=== PATIENT | female | born 1965 | race Caucasian/White ===

== ENCOUNTER 2018-05-13 14:40 | Emergency (ER) | payer OTHER ==
[2018-05-13] MEDS ORDERED: KETOROLAC 30 MG/ML INJ ONE (15:35)
--- NOTE | 2018-05-13 16:35 | RAD REPORT ---
EXAM DESCRIPTION: RAD - Knee Left 3 View - 05/13/2018 4:29 pm CLINICAL HISTORY: Left knee pain FINDINGS: No fracture or dislocation is seen.
--- NOTE | 2018-05-13 16:36 | EDPHYS ---
Physician Documentation [facility] Name: Zainab Kinney Age: 53 yrs Sex: Female : 1965 Arrival Date: 05/13/2018 Time: 14:43 Bed 13 Private MD: None, None ED Physician Mckay Soto HPI: 05/13 15:36 This 53 yrs old Female presents to ER via Ambulatory with complaints of Knee kb Injury. 15:37 The patient presents with pain, that is acute. The complaints affect the posterior kb aspect of left knee. Context: resulted from an unknown cause, the patient can fully bear weight, the patient is able to ambulate, Problem is a result from a previous injury: No. Pt states she got a muscle cramp and then felt a pop behind left knee 5 days ago. Onset: The symptoms/episode began/occurred 5 day(s) ago. Modifying factors: The symptoms are alleviated by nothing. the symptoms are aggravated by movement, weight bearing. Associated signs and symptoms: The patient has no apparent associated signs or symptoms. Treatment prior to arrival includes: no previous treatment. Severity of symptoms: At their worst the symptoms were moderate, in the emergency department the symptoms are unchanged. The patient has not experienced similar symptoms in the past. The patient has not recently seen a physician. 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 - Social history:: Smoking status: Patient/guardian denies using tobacco. - Ebola Screening: : Patient negative for fever greater than or equal to 101.5 degrees Fahrenheit, and additional compatible Ebola Virus Disease symptoms Patient denies exposure to infectious person Patient denies travel to an Ebola-affected area in the 21 days before illness onset No symptoms or risks identified at this time. ROS: 15:36 Constitutional: Negative for fever, chills, and weight loss, Cardiovascular: Negative kb for chest pain, palpitations, and edema, Respiratory: Negative for shortness of breath, cough, wheezing, and pleuritic chest pain, Abdomen/GI: Negative for abdominal pain, nausea, vomiting, diarrhea, and constipation, Skin: Negative for injury, rash, and discoloration, Neuro: Negative for headache, weakness, numbness, tingling, and seizure. 15:36 MS/extremity: Positive for pain, tenderness. Exam: 15:35 Constitutional: This is a well developed, well nourished patient who is awake, alert, kb and in no acute distress. Head/Face: Normocephalic, atraumatic. Chest/axilla: Normal chest wall appearance and motion. Nontender with no deformity. No lesions are appreciated. Cardiovascular: Regular rate and rhythm with a normal S1 and S2. No gallops, murmurs, or rubs. Normal PMI, no JVD. No pulse deficits. Respiratory: Lungs have equal breath sounds bilaterally, clear to auscultation and percussion. No rales, rhonchi or wheezes noted. No increased work of breathing, no retractions or nasal flaring. Abdomen/GI: Soft, non-tender, with normal bowel sounds. No distension or tympany. No guarding or rebound. No evidence of tenderness throughout. Skin: Warm, dry with normal turgor. Normal color with no rashes, no lesions, and no evidence of cellulitis. Neuro: Awake and alert, GCS 15, oriented to person, place, time, and situation. Cranial nerves II-XII grossly intact. Motor strength 5/5 in all extremities. Sensory grossly intact. Cerebellar exam normal. Normal gait. 15:35 Musculoskeletal/extremity: Extremities: grossly normal except: noted in the posterior aspect of left knee and medial aspect of left knee: pain, tenderness, ROM: intact in all extremities, Circulation is intact in all extremities. Sensation intact. Weight bearing: able to fully bear weight. Vital Signs: 14:49 BP 185 / 124; Pulse 91; Resp 16; Temp 97.2; Pulse Ox 99% on R/A; Weight 140.61 kg; aj Height 5 ft. 11 in. (180.34 cm) (R); 16:15 BP 145 / 87; Pulse 78; Resp 18; Pulse Ox 99% on R/A; ph 14:49 Body Mass Index 43.24 (140.61 kg, 180.34 cm) aj MDM: 15:11 Patient medically screened. kb 15:35 Data reviewed: vital signs, nurses notes. Data interpreted: Pulse oximetry: on room air kb is 99 %. Interpretation: normal. 16:35 Counseling: I had a detailed discussion with the patient and/or guardian regarding: the kb historical points, exam findings, and any diagnostic results supporting the discharge/admit diagnosis, radiology results, the need for outpatient follow up, a orthopedic surgeon, to return to the emergency department if symptoms worsen or persist or if there are any questions or concerns that arise at home. 05/13 15:21 Order name: Knee Left 3 View XRAY; Complete Time: 16:35 kb 05/13 16:05 Order name: Vital Signs; Complete Time: 16:21 kb Administered Medications: 15:34 Drug: TORadol 60 mg Route: IM; Site: right deltoid; Disposition: 18:27 Co-signature as Attending Physician, Mckay Soto MD. rn Disposition: 05/13/18 16:35 Discharged to Home. Impression: Pain in left knee. - Condition is Stable. - Discharge Instructions: Knee Pain, [id number]. - Prescriptions for Diclofenac Sodium 75 mg Oral Tablet, Delayed Release (E.C.) - take 1 tablet by ORAL route 2 times per day As needed; 30 tablet. - Medication Reconciliation Form, Thank You Letter, Antibiotic Education, Prescription Opioid Use form. - Follow up: Emergency Department; When: As needed; Reason: Worsening of condition. Follow up: Private Physician; When: 2 - 3 days; Reason: Recheck today's complaints, Continuance of care, Re-evaluation by your physician. Signatures: Dispatcher [employer] [facility] Kristine Pacheco, DOOR TECHNICIAN-C DOOR TECHNICIAN-Naomi Rivera RN RN aj Williams, Irene, RN RN iw Nieto, Roman, MD MD rn Hall, Patricia, RN RN ph Corrections: (The following items were deleted from the chart) 16:58 16:35 05/13/2018 16:35 Discharged to Home. Impression: Pain in left knee. Condition is ph Stable. Forms are Medication Reconciliation Form, Thank You Letter, Antibiotic Education, Prescription Opioid Use. Follow up: Emergency Department; When: As needed; Reason: Worsening of condition. Follow up: Private Physician; When: 2 - 3 days; Reason: Recheck today's complaints, Continuance of care, Re-evaluation by your physician. kb
--- NOTE | 2018-05-13 16:36 | ER ---
Nurse's Notes [facility] Name: Zainab iKnney Age: 53 yrs Sex: Female : 1965 Arrival Date: 05/13/2018 Time: 14:43 Bed 13 Private MD: None, None Diagnosis: Pain in left knee Presentation: 05/13 14:46 Presenting complaint: Patient states: Left knee pain for 10 days after patient felt a aj pop in her knee when she had a muscle cramp. Patient ambulated with limp to triage. Transition of care: patient was not received from another setting of care. Onset of symptoms was May 03, 2018. Risk Assessment: Do you want to hurt yourself or someone else? Patient reports no desire to harm self or others. Initial Sepsis Screen: Does the patient meet any 2 criteria? No. Patient's initial sepsis screen is negative. Does the patient have a suspected source of infection? No. Patient's initial sepsis screen is negative. Note Patient stated upon entering triage, "I can tell you my blood pressure is going to be vijay high, because of the pain." Denies any HX of HTN. Care prior to arrival: None. 14:46 Method Of Arrival: Ambulatory 14:46 Acuity: KASSIDY 3 aj Triage Assessment: 14:49 General: Appears in no apparent distress. comfortable, obese, Behavior is calm, aj cooperative, appropriate for age. Pain: Complains of pain in left knee. Neuro: Level of Consciousness is awake, alert, obeys commands, Oriented to person, place, time, situation, Appropriate for age. Respiratory: Airway is patent Respiratory effort is even, unlabored, Respiratory pattern is regular, symmetrical. Derm: Skin is intact, is healthy with good turgor, Skin is pink, warm \\T\\ dry. normal. Musculoskeletal: Reports pain in left knee. 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 - Social history:: Smoking status: Patient/guardian denies using tobacco. - Ebola Screening: : Patient negative for fever greater than or equal to 101.5 degrees Fahrenheit, and additional compatible Ebola Virus Disease symptoms Patient denies exposure to infectious person Patient denies travel to an Ebola-affected area in the 21 days before illness onset No symptoms or risks identified at this time. Screenin:30 Abuse screen: Denies threats or abuse. Denies injuries from another. Nutritional ph screening: No deficits noted. Tuberculosis screening: No symptoms or risk factors identified. Fall Risk None identified. Assessment: 15:30 General: Appears in no apparent distress. uncomfortable, obese, well groomed, Behavior ph is calm, cooperative, appropriate for age. Pain: Complains of pain in left knee. Neuro: Level of Consciousness is awake, alert, obeys commands, Oriented to person, place, time, situation. Cardiovascular: Capillary refill < 3 seconds in bilateral fingers toes Patient's skin is warm and dry. Pulses are palpable in right dorsalis pedis artery and left dorsalis pedis artery. Respiratory: Airway is patent Respiratory effort is even, unlabored. Derm: Skin is intact, is healthy with good turgor, Skin is pink, warm \\T\\ dry. 16:30 Reassessment: Patient appears in no apparent distress at this time. Patient and/or ph family updated on plan of care and expected duration. Pain level reassessed. Patient is alert, oriented x 3, equal unlabored respirations, skin warm/dry/pink. Pt resting quietly. Vital Signs: 14:49 BP 185 / 124; Pulse 91; Resp 16; Temp 97.2; Pulse Ox 99% on R/A; Weight 140.61 kg; aj Height 5 ft. 11 in. (180.34 cm) (R); 16:15 BP 145 / 87; Pulse 78; Resp 18; Pulse Ox 99% on R/A; ph 14:49 Body Mass Index 43.24 (140.61 kg, 180.34 cm) aj ED Course: 14:43 Patient arrived in ED. sb2 14:43 None, None is Private Physician. sb2 14:48 Triage completed. aj 14:49 Arm band placed on left wrist. Patient placed in waiting room, Patient notified of wait aj time. 15:11 Krist[facility]acheco F[facility]-C [facility]. kb 15:11 Mckay Soto MD is Attending Physician. kb 15:29 Adriana Guadarrama, RN is Primary Nurse. iw 15:30 Patient has correct armband on for positive identification. Bed in low position. Call ph light in reach. Side rails up X 1. Pulse ox on. NIBP on. 15:31 Esther Mccarty, RN is Primary Nurse. ph 16:29 Knee Left 3 View XRAY In Process Unspecified. EDMS 16:30 No provider procedures requiring assistance completed. Patient did not have IV access ph during this emergency room visit. Administered Medications: 15:34 Drug: TORadol 60 mg Route: IM; Site: right deltoid; iw Outcome: 16:35 Discharge ordered by MD. kb 16:58 Patient left the ED. ph 16:58 Discharged to home ambulatory. ph 16:58 Condition: good 16:58 Discharge instructions given to patient, Instructed on discharge instructions, follow up and referral plans. medication usage, Demonstrated understanding of instructions, follow-up care, medications, Prescriptions given X 1. Signatures: Dispatcher [employer] [facility] Kristine Pacheco, PETROPHYSICAL ENGINEER-C PETROPHYSICAL ENGINEER-Naomi Rivera, RN RN Adriana Harris, RN RN Esther Mccarty, RN RN [address] sb2 Corrections: (The following items were deleted from the chart) 14:50 14:49 Arm band placed on left wrist. Patient placed in an exam room, dougie constantino
== END 2018-05-13 16:58 | disposition home or self-care (01) ==
LOC: ER 14:40
DX: M25.562 Pain in left knee (principal); Z88.6 Allergy status to analgesic agent; Z88.8 Allergy status to other drugs, medicaments and biological substances
CPT/HCPCS: 96372; 99284

== ENCOUNTER 2023-06-18 19:46 | Emergency (ER) | payer OTHER, SELFPAY ==
[2023-06-18 20:32] LABS: Absolute Lymphocytes (CBC) 1.6 K/uL (0.7-4.9); Hematocrit 35.8 % (36.0-45.0); Lymphocytes % 30.3 % (15.3-44.8); MCV 90.3 fL (80-100); MPV 7.4 fL (7.6-11.3); Platelets 237 thou/uL (152-406); RBC Red Blood Cell Count 3.97 M/uL (3.86-4.86)
[2023-06-18] MEDS ORDERED: FAMOTIDINE 20 MG/2 ML VIAL IV ONE (20:34)
[2023-06-18] MEDS ORDERED: NA CHLORIDE 0.9% 1,000 ML ONE (20:34)
[2023-06-18 20:39] LABS: Protime INR 1.06
[2023-06-18 20:51] LABS: ALT/SGPT 22 U/L (13-56); AST/SGOT 12 U/L (15-37); Albumin 3.9 g/dL (3.4-5.0); Alkaline Phosphatase 141 U/L (45-117); BUN Blood Urea Nitrogen 19 mg/dL (7-18); Bicarbonate 24 mEq/L (21-32); Bilirubin Total 0.3 mg/dL (0.2-1.0); Glomerular Filtration Rate 73 ml/min (=/>90); Glucose Level 138 mg/dL (74-106); Lipase 28 U/L (13-75); Magnesium 1.8 mg/dL (1.6-2.4); NT PRO-BNP 226 pg/mL (<125); Potassium 4.4 mEq/L (3.5-5.1); Protein, Total 7.8 g/dL (6.4-8.2); Sodium Level 132 mEq/L (136-145); Troponin High Sensitivity 7.7 pg/mL (<58.9)
[2023-06-18 20:55] LABS: Bilirubin Direct < 0.1 mg/dL (0-0.2); Bilirubin Indirect, Calculated ND mg/dL (0.2-0.8)
[2023-06-18] MEDS ORDERED: dexAMETHasone 4 MG/ML VIAL ONE (20:56)
[2023-06-18] MEDS ORDERED: DIAZEPAM 5 MG TABLET ONE (20:56)
[2023-06-18] MEDS ORDERED: KETOROLAC 30 MG/ML INJ ONE (20:56)
--- NOTE | 2023-06-18 21:05 | EDPHYS ---
Physician Documentation [facility] Name: Zainab Kinney Age: 58 yrs Sex: Female : 1965 Arrival Date: 06/18/2023 Time: 19:46 Bed 6 Private MD: ED Physician Abbe Munoz HPI: 06/18 20:41 This 58 yrs old Female presents to ER via Wheelchair with complaints of Low yazan Back Pain, Shortness Of Breath. 20:41 The patient presents with pain that is acute, and decreased range of motion. The yazan symptoms are located in the low back, right mid back and right low back. The pain radiates to the right mid back and right low back. The problem was sustained from unknown cause. Onset: The symptoms/episode began/occurred today. Modifying factors: The patient symptoms are alleviated by remaining still, the patient symptoms are aggravated by any movement, bending, movement. Associated signs and symptoms: Pertinent positives: nausea. Severity of symptoms: At their worst the symptoms were moderate, in the emergency department the symptoms are unchanged. It is unknown whether or not the patient has had similar symptoms in the past. Historical: - Allergies: 19:59 Codeine; mb9 19:59 Zofran; mb9 - Home Meds: 19:59 None [Active]; mb9 - PMHx: 19:59 None; mb9 - PSHx: 19:59 Total abdominal hysterectomy; gastric bypass; mb9 - Immunization history:: Adult Immunizations up to date. - Social history:: Smoking status: Patient denies any tobacco usage or history of. - Family history:: not pertinent. ROS: 20:41 Constitutional: Negative for fever, chills, and weight loss, Eyes: Negative for injury, yazan pain, redness, and discharge, ENT: Negative for injury, pain, and discharge, Neck: Negative for injury, pain, and swelling, Cardiovascular: Negative for chest pain, palpitations, and edema, Respiratory: Negative for shortness of breath, cough, wheezing, and pleuritic chest pain, Abdomen/GI: Negative for abdominal pain, nausea, vomiting, diarrhea, and constipation, : Negative for injury, bleeding, discharge, and swelling, MS/Extremity: Negative for injury and deformity, Skin: Negative for injury, rash, and discoloration, Neuro: Negative for headache, weakness, numbness, tingling, and seizure, Psych: Negative for depression, anxiety, suicide ideation, homicidal ideation, and hallucinations, Allergy/Immunology: Negative for hives, rash, and allergies, Endocrine: Negative for neck swelling, polydipsia, polyuria, polyphagia, and marked weight changes, Hematologic/Lymphatic: Negative for swollen nodes, abnormal bleeding, and unusual bruising, 20:41 Back: Positive for pain with movement, of the lumbar area, 21:06 : Negative for urinary symptoms, urinary frequency, small amounts, hematuria, pelvic yazan pain, flank pain, burning with urination, difficulty urinating, foul smelling urine, Exam: 20:41 Constitutional: This is a well developed, well nourished patient who is awake, alert, yazan and in no acute distress. Head/Face: Normocephalic, atraumatic. Eyes: Pupils equal round and reactive to light, extra-ocular motions intact. Lids and lashes normal. Conjunctiva and sclera are non-icteric and not injected. Cornea within normal limits. Periorbital areas with no swelling, redness, or edema. ENT: Nares patent. No nasal discharge, no septal abnormalities noted. Tympanic membranes are normal and external auditory canals are clear. Oropharynx with no redness, swelling, or masses, exudates, or evidence of obstruction, uvula midline. Mucous membranes moist. Neck: Trachea midline, no thyromegaly or masses palpated, and no cervical lymphadenopathy. Supple, full range of motion without nuchal rigidity, or vertebral point tenderness. No Meningismus. Chest/axilla: Normal chest wall appearance and motion. Nontender with no deformity. No lesions are appreciated. Cardiovascular: Regular rate and rhythm with a normal S1 and S2. No gallops, murmurs, or rubs. Normal PMI, no JVD. No pulse deficits. Respiratory: Lungs have equal breath sounds bilaterally, clear to auscultation and percussion. No rales, rhonchi or wheezes noted. No increased work of breathing, no retractions or nasal flaring. Abdomen/GI: Soft, non-tender, with normal bowel sounds. No distension or tympany. No guarding or rebound. No evidence of tenderness throughout. Female : Normal external genitalia. Skin: Warm, dry with normal turgor. Normal color with no rashes, no lesions, and no evidence of cellulitis. MS/ Extremity: Pulses equal, no cyanosis. Neurovascular intact. Full, normal range of motion. Neuro: Awake and alert, GCS 15, oriented to person, place, time, and situation. Cranial nerves II-XII grossly intact. Motor strength 5/5 in all extremities. Sensory grossly intact. Cerebellar exam normal. Normal gait. Psych: Awake, alert, with orientation to person, place and time. Behavior, mood, and affect are within normal limits. 20:41 ECG was reviewed by the Attending Physician. 21:06 Musculoskeletal/extremity: DVT Exam: No signs of deep vein thrombosis. no pain, no yazan swelling, no tenderness, negative Homans' sign noted on exam, no appreciated bluish discoloration, no erythema, no increased warmth, Vital Signs: 19:57 BP 168 / 85; Pulse 88; Resp 20; Temp 98; Pulse Ox 100% on R/A; Weight 123.38 kg; Height mb9 5 ft. 11 in. ; Pain 10/10; 19:57 Body Mass Index 37.94 (123.38 kg, 180.34 cm) mb9 19:57 Pain Scale: Adult mb9 MDM: 19:58 Patient medically screened. yazan 20:46 Differential diagnosis: arthritis, strain, fracture, sciatica, contusion, Herniated yazan disc. Data reviewed: lab test result(s), EKG, radiologic studies, CT scan, plain films. Consideration of Admission/Observation Escalation of care including admission/observation considered. I considered the following discharge prescriptions or medication management in the emergency department Medications were administered in the Emergency Department. See MAR. Independent interpretation of the following test(s) in the Emergency Department CT Scan: My interpretation is ct disection. Test considered but Not performed: CT: ct stone. Historians other than the Patient: EMS: ems well informed. Care significantly affected by the following chronic conditions: Obesity. Counseling: I had a detailed discussion with the patient and/or guardian regarding the historical points, exam findings, and any diagnostic results supporting the discharge/admit diagnosis, lab results, radiology results, the need for outpatient follow up, for definitive care, a family practitioner, a neurologist. 06/18 20:00 Order name: Basic Metabolic Panel; Complete Time: 20:56 yazan 06/18 20:00 Order name: CBC with Diff; Complete Time: 20:48 yazan 06/18 20:00 Order name: LFT's; Complete Time: 20:56 [facility] 06/18 20:00 Order name: Magnesium; Complete Time: 20:56 [facility] 06/18 20:00 Order name: NT PRO-BNP; Complete Time: 20:56 [facility] 06/18 20:00 Order name: PT-INR; Complete Time: 20:48 06/18 20:00 Order name: Troponin HS; Complete Time: 20:56 [facility] 06/18 20:00 Order name: Lipase; Complete Time: 20:56 [facility] 06/18 20:00 Order name: Urinalysis w/ reflexes 06/18 20:00 Order name: COVID-19 SARS RT PCR 06/18 20:00 Order name: Flu; Complete Time: 20:48 [facility] 06/18 20:00 Order name: XRAY Chest (1 view) 06/18 20:00 Order name: CT Aorta for Dissection: dissection, pe 06/18 20:00 Order name: EKG; Complete Time: 20:01 [facility] 06/18 20:00 Order name: Cardiac monitoring; Complete Time: 20:07 [facility] 06/18 20:00 Order name: EKG - Nurse/Tech; Complete Time: 20:07 [facility] 06/18 20:00 Order name: IV Saline Lock; Complete Time: 20:20 [facility] 06/18 20:00 Order name: Labs collected and sent; Complete Time: 20:20 [facility] 06/18 20:00 Order name: O2 Per Protocol; Complete Time: 20:06 [facility] 06/18 20:00 Order name: O2 Sat Monitoring; Complete Time: 20:06 [facility] EC:41 Rate is 77 beats/min. Rhythm is regular. QRS [place] is Normal. VT interval is normal. QRS yazan interval is normal. QT interval is normal. No Q waves. T waves are Normal. No ST changes noted. Clinical impression: NSR w/ Non-specific ST/T Changes and No evidence of ischemia. Interpreted by me. Reviewed by me. Administered Medications: 20:39 Drug: NS 0.9% IV 500 ml IV at bolus once Route: IV; Rate: bolus; Site: right rv antecubital; 20:39 Drug: NS 0.9% IV 1000 ml IV at 125 ml/hr continuous Route: IV; Rate: 125 ml/hr; Site: rv right antecubital; 20:39 Drug: Famotidine IVP 20 mg IVP once; dilute with 10 mL 0.9% NaCl; give over 2 minutes rv Route: IVP; Site: right antecubital; 20:49 Drug: Diazepam PO 10 mg PO once Route: PO; rv 20:49 Drug: Decadron - Dexamethasone IVP 10 mg IVP once Route: IVP; Site: right antecubital; rv 20:49 Drug: Ketorolac IVP 30 mg IVP once Route: IVP; Site: right antecubital; rv 21:38 Not Given (Patient Refused): morphineor iv 4 mg IVP once over 4 mins jb4 21:38 Not Given (Patient Refused): [id number] mg IVP once jb4 Disposition Summary: 06/18/23 21:05 Discharge Ordered Notes: Location: Home yazan Problem: new yazan Symptoms: have improved yazan Condition: Stable yazan Diagnosis - Low back pain yazan - Obesity, unspecified yazan - Sciatica, right side yazan - Calculus of gallbladder without cholecystitis yazan - Spondylolysis, lumbar region - mod to marked left foraminal stenosis yazan Followup: yazan - With: Private Physician - When: 2 - 3 days - Reason: Recheck today's complaints, Continuance of care, Re-evaluation by your physician Followup: yazan - With: Km Peres MD - When: 2 - 3 days - Reason: Recheck today's complaints, Re-evaluation by your physician Followup: yazan - With: Henry Keane MD - When: 2 - 3 days - Reason: Recheck today's complaints, Re-evaluation by your physician Discharge Instructions: - Discharge Summary Sheet yazan - Acute Back Pain, Adult yazan - Musculoskeletal Pain yazan - Obesity, Adult yazan - Sciatica yazan - Cholelithiasis yazan - Cholelithiasis, [id number] yazan - Spondylolysis yazan Forms: - Medication Reconciliation Form yazan - Thank You Letter yazan - Antibiotic Education yazan - Prescription Opioid Use yazan - Patient Portal Instructions yazan - Leadership Thank You Letter yazan - Work release form jb4 Prescriptions: - dexamethasone 2 mg Oral tablet - take 1 tablet ORAL route every 12 hours; 10 tablet; Refills: 0, Product yazan Selection Permitted - Valium 5 mg Oral Tablet - take 1 tablet ORAL route every 8 hours As needed; 20 tablet; Refills: 0, yazan Product Selection Permitted - Diclofenac Sodium 75 mg Oral tablet, delayed release (enteric coated) - take 1 tablet ORAL route 2 times per day; 20 tablet; Refills: 0, Product [facility] Selection Permitted - Tramadol 50 mg Oral tablet - take 1 tablet ORAL route every 6 hours as needed; 20 tablet; Refills: 0, [facility] Product Selection Permitted Signatures: Dispatcher [employer] Abbe Franklin MD MD cha Vicente, Ronaldo, RN RN rv Magdalena, Elis Khan RN RN mb9 Siva Wasserman RN jb4
--- NOTE | 2023-06-18 21:05 | ER ---
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 I noticed my urine was cloudy but don't have any pain with urination. The pain is so bad it's making me feel SOB and nauseous". Coronavirus screen: Vaccine status: Patient reports receiving the 2nd dose of the covid vaccine. Ebola Screen: No symptoms or risks identified at this time. Initial Sepsis Screen: Does the patient meet any 2 criteria? No. Patient's initial sepsis screen is negative. Does the patient have a suspected source of infection? No. Patient's initial sepsis screen is negative. Risk Assessment: Do you want to hurt yourself or someone else? Patient reports no desire to harm self or others. Onset of symptoms was June 18, 2023. 19:57 [facility]: [facility] 19:57 Acuity: KASSIDY 3 mb9 Triage Assessment: 19:59 General: Appears uncomfortable, Behavior is anxious, crying. Pain: Complains of pain in mb9 back Pain does not radiate. Pain currently is 10 out of 10 on a pain scale. Quality of pain is described as sharp, shooting, stabbing, throbbing. EENT: No signs and/or symptoms were reported regarding the EENT system. Neuro: Collazo Agitation-Sedation Scale (RASS): 0 - Alert and Calm Level of Consciousness is awake, alert, obeys commands, Oriented to person, place, time, situation, Appropriate for age. Cardiovascular: Patient's skin is warm and dry. Respiratory: Reports shortness of breath Airway is patent Respiratory effort is even, unlabored, Respiratory pattern is regular, symmetrical. GI: Reports nausea. Historical: - Allergies: 19:59 Codeine; mb9 19:59 Zofran; mb9 - Home Meds: 19:59 None [Active]; mb9 - PMHx: 19:59 None; mb9 - PSHx: 19:59 Total abdominal hysterectomy; gastric bypass; mb9 - Immunization history:: Adult Immunizations up to date. - Social history:: Smoking status: Patient denies any tobacco usage or history of. - Family history:: not pertinent. Screenin:39 [facility] ED Fall Risk Assessment (Adult) History of falling in the last 3 months, jb4 including since admission No falls in past 3 months (0 pts) Confusion or Disorientation No (0 pts) Score/Fall Risk Level 0 - 2 = Low Risk Oriented to surroundings, Maintained a safe environment. Abuse screen: Denies threats or abuse. Nutritional screening: No deficits noted. Tuberculosis screening: No symptoms or risk factors identified. Assessment: 21:00 Reassessment: Patient appears in no apparent distress at this time. Patient and/or jb4 family updated on plan of care and expected duration. Pain level reassessed. Patient is alert, oriented x 3, equal unlabored respirations, skin warm/dry/pink. Vital Signs: 19:57 BP 168 / 85; Pulse 88; Resp 20; Temp 98; Pulse Ox 100% on R/A; Weight 123.38 kg; Height mb9 5 ft. 11 in. ; Pain 10/10; 19:57 Body Mass Index 37.94 (123.38 kg, 180.34 cm) mb9 19:57 Pain Scale: Adult mb9 ED Course: 19:51 Patient arrived in ED. cm10 19:57 Arm band placed on. mb9 19:58 Abbe Munoz MD is Attending Physician. yazan 19:59 Triage completed. mb9 20:06 Jim Elena, RN is Primary Nurse. bp 20:20 Inserted saline lock: 20 gauge in right antecubital area, using aseptic technique. rv Blood collected. 20:35 CT Aorta for Dissection: dissection, pe In Process Unspecified. EDMS 20:43 XRAY Chest (1 view) In Process Unspecified. EDMS 21:04 Km Peres MD is Referral Physician. yazan 21:04 Henry Keane MD is Referral Physician. yazan 21:39 Patient has correct armband on for positive identification. Bed in low position. Call jb4 light in reach. Side rails up X 1. 21:39 No provider procedures requiring assistance completed. IV discontinued, intact, jb4 bleeding controlled, No redness/swelling at site. Pressure dressing applied. Administered Medications: 20:39 Drug: NS 0.9% IV 500 ml IV at bolus once Route: IV; Rate: bolus; Site: right rv antecubital; 20:39 Drug: NS 0.9% IV 1000 ml IV at 125 ml/hr continuous Route: IV; Rate: 125 ml/hr; Site: rv right antecubital; 20:39 Drug: Famotidine IVP 20 mg IVP once; dilute with 10 mL 0.9% NaCl; give over 2 minutes rv Route: IVP; Site: right antecubital; 20:49 Drug: Diazepam PO 10 mg PO once Route: PO; rv 20:49 Drug: Decadron - Dexamethasone IVP 10 mg IVP once Route: IVP; Site: right antecubital; rv 20:49 Drug: Ketorolac IVP 30 mg IVP once Route: IVP; Site: right antecubital; rv 21:38 Not Given (Patient Refused): morphineor iv 4 mg IVP once over 4 mins jb4 21:38 Not Given (Patient Refused): [id number] mg IVP once jb4 Outcome: 21:05 Discharge ordered by . yazan 21:39 Discharged to home ambulatory, jb4 21:39 Condition: stable 21:39 Discharge instructions given to patient, Instructed on discharge instructions, follow up and referral plans. medication usage, Demonstrated understanding of instructions, follow-up care, medications, Prescriptions given X 4, 21:40 Patient left the ED. jb4 Signatures: Dispatcher [employer] EDMS Abbe Munoz MD MD cha Bryson, James, RN RN jb4 Jim Elena RN RN Nishant Cerda RN RN rv Elis Nichols RN RN mb9 Sandi Cramer, RN RN cm10 Corrections: (The following items were deleted from the chart) 20:00 19:57 Pulse 88bpm; Resp 20bpm; Pulse Ox 100% RA; Temp 98F; 123.38 kg; Height 5 ft. 11 mb9 in.; BMI: 37.9; Pain 10/10, Adult; mb9
--- NOTE | 2023-06-18 21:07 | RAD REPORT ---
EXAM DESCRIPTION: CT - Angio Aorta For Dissection - 06/18/2023 8:33 pm CLINICAL HISTORY: . Chest and abd pain COMPARISON: None TECHNIQUE: Computed tomography angiography of the chest, abdomen pelvis were obtained. 140 cc Isovue 370 was administered intravenously. Coronal and sagittal reconstruction were performed. MIP 3D reconstruction was performed All CT scans are performed using dose optimization technique as appropriate and may include automated exposure control or mA/KV adjustment according to patient size. FINDINGS: An aortic dissection is not seen. An aortic aneurysm is not displayed. Moderate stenosis celiac artery. SMA and KHANH patent A lung consolidation is not present. A pericardial effusion is not seen. A pleural effusion is not no roderick. The liver,spleen, pancreas,adrenals and kidneys demonstrate no significant abnormality. Postsurgical changes involve the stomach There no evidence diverticulitis. Small gallstone. Gallbladder distention Spondylosis L4-5 results in mild to moderate central stenosis. Moderate to marked left foraminal sten osis IMPRESSION: Negative for an aortic dissection. Cholelithiasis with gallbladder distention Spondylosis L4-5 results in mild to moderate central stenosis. Moderate to marked left foraminal sten osis
--- NOTE | 2023-06-18 21:08 | RAD REPORT ---
EXAM DESCRIPTION: Julissa Single View06/18/2023 8:41 pm CLINICAL HISTORY: Chest pain COMPARISON: none FINDINGS: The lungs appear clear of acute infiltrate. The heart is normal size IMPRESSION: No acute abnormalities displayed
[2023-06-18 21:20] LABS: Specific Gravity 1.022 (1.005-1.030); Urine Bacteria <20 /HPF (<20); Urine Bilirubin NEGATIVE (Negative); Urine Blood Negative (Negative); Urine Clarity Clear (Clear); Urine Color Colorless (Yellow); Urine Glucose NEGATIVE (Negative); Urine Protein NEGATIVE (Negative); Urine RBC <5 /HPF (None Seen); Urine Urobilinogen Normal (Normal)
[2023-06-18 22:45] VITALS: BP 168/85; TEMP 98; O2SAT 100
--- NOTE | 2023-06-19 16:58 | EKG ---
Test Date: 2023-06-18 Test Time: 20:11:06 Weights And Measures Inspector: ANAHY MEASUREMENT RESULTS: Intervals: Rate: 77 TN: 152 QRSD: 84 QT: 426 QTc: 482 Essie: P: 50 TN: 152 QRS: 59 T: 82 INTERPRETIVE STATEMENTS: Normal sinus rhythm Nonspecific ST abnormality Prolonged QT Abnormal ECG No previous ECG available for comparison Electronically Signed On 06-19-23 16:56:19 CDT by Abiel Coleman
== END 2023-06-18 21:40 | disposition home or self-care (01) ==
LOC: ER 19:46
DX: M54.31 Sciatica, right side (principal); K80.20 Calculus of gallbladder without cholecystitis without obstruction; M43.06 Spondylolysis, lumbar region; E66.9 Obesity, unspecified; Z68.37 Body mass index [BMI] 37.0-37.9, adult; Z20.822 Contact with and (suspected) exposure to COVID-19
CPT/HCPCS: 36415; 71045; 71275; 74175; 80048; 80076; 81001; 82565; 83690; 83735; 83880; 84484; 85025; 85610; 87635; 87804; 93005; 96374; 96375; 99284; J1100; J7030; Q9967